=== PATIENT | female | born 1960 | race Caucasian/White ===

== ENCOUNTER 2017-12-27 11:03 | Emergency (ER) | payer MEDICARE, OTHER ==
[2017-12-27 12:01] LABS: Basophils % (A) 0 %; Eosinophils # (A) 0.2 k/uL (0-0.7); Eosinophils % (A) 6 %; HCT 41.6 % (34.0-46.0); HGB 13.5 gm/dL (11.4-16.0); Lymphocytes # (A) 0.7 k/uL (1.0-4.8); Lymphocytes % (A) 18 %; MCH 30.5 pg (25.0-35.0); MCHC 32.4 g/dL (31.0-37.0); MCV 94.2 fL (80.0-100.0); Mean Platelet Volume 6.5; Monocytes # (A) 0.3 k/uL (0-1.0); Monocytes % (A) 7 %; Neutrophils # (A) 2.6 k/uL (1.3-7.7); Neutrophils % (A) 67 %; Platelet Count 177 k/uL (150-450); RBC 4.42 m/uL (3.80-5.40); RDW 15.6 % (11.5-15.5); WBC 3.9 k/uL (3.8-10.6)
[2017-12-27 12:07] VITALS: BP 131/79; PULSE 78; RESP 20; TEMP 97.6
[2017-12-27 12:15] LABS: Magnesium 1.6 mg/dL (1.6-2.3)
[2017-12-27 12:16] LABS: Albumin 2.7 g/dL (3.5-5.0); Calcium 8.1 mg/dL (8.4-10.2); Potassium 4.6 mmol/L (3.5-5.1); Total Bilirubin 1.4 mg/dL (0.2-1.3); Total Protein 6.4 g/dL (6.3-8.2)
[2017-12-27] MEDS ORDERED: MORPHINE SULFATE 4 MG/ML SYRINGE IVP STA (12:28)
--- NOTE | 2017-12-27 13:22 | CT ---
EXAMINATION TYPE: CT abdomen pelvis w con DATE OF EXAM: 12/27/2017 COMPARISON: None HISTORY: RLQ pain post GB removal last week CT DLP: 2.4 mGycm Automated exposure control for dose reduction was used. TECHNIQUE: Helical acquisition of images from the lung bases through the pelvis have been completed. CONTRAST: Performed without Oral Contrast and with IV Contrast, patient injected with 100 mL of Isovue 300. FINDINGS: There are anasarca changes, abnormal skin thickening present over the abdomen, correlate fo r edema versus cellulitis. Small focus of fluid attenuation along anterior abdominal wall likely rela sheryl to the laparoscopic cholecystectomy local seroma or ecchymosis, hematoma, axial image 36. LUNG BASES: There is evidence of granulomatous disease, there is a calcified granuloma right middle l obe, calcified hilar nodes are present AORTA: No significant abnormality is appreciated. LIVER/GB: Patient is post cholecystectomy. Liver is enlarged. There is some minimal fluid around the liver. Suspect some portal nodes are present. PANCREAS: No significant abnormality is seen. SPLEEN: Spleen is enlarged. ADRENALS: No significant abnormality is seen. KIDNEYS: There is some mild delay of contrast excretion.. REPRODUCTIVE ORGANS: No significant abnormality is seen BOWEL: No evident bowel obstruction. The appendix is normal. FREE AIR: No Free Air visible. ASCITES: Small amount of free fluid present along the paracolic gutters. Minimal fluid in the pelvis . PELVIC ADENOPATHY: None visualized. RETROPERITONEAL ADENOPATHY: No Retroperitoneal Adenopathy visible. URINARY BLADDER: Urine appears somewhat dense. OSSEOUS STRUCTURES: Postop changes are present status post lumbosacral fusion. IMPRESSION: HEPATOSPLENOMEGALY. CORRELATE FOR POSSIBLE RENAL INSUFFICIENCY WITH QUESTIONABLE DENSE URINE, POSTOP CHANGES WITH MINIMAL ASCITES. CORRELATE FOR POSSIBLE CELLULITIS VERSUS EDEMA DESCRIBED. Old granul omatous disease.
[2017-12-27 13:58] LABS: Appearance,Urine Clear (Clear); Bilirubin,Urine Negative (Negative); Blood,Urine Negative (Negative); Color,Urine Yellow; Glucose,Urine (UA) Negative (Negative); Ketones,Urine Negative (Negative); Leukocyte Esterase,Urine Negative (Negative); Nitrite,Urine Negative (Negative); PH, Urine 6.5 (5.0-8.0); Protein,Urine Negative (Negative); Specific Gravity,Urine 1.014 (1.001-1.035)
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
[2017-12-27] MEDS ORDERED: cefTRIAXone IN SWFI 2,000 MG/20 ML SYRINGE IVP STA (14:22)
[2017-12-27] MEDS ORDERED: HYDROcodone/APAP 5-325MG 1 EACH TAB PO STA (14:25)
[2017-12-27] MEDS ORDERED: ACET/COD 300 MG/30 MG STARTER PACK 6 TAB BTL PO STA (14:25)
== END 2017-12-27 15:37 | disposition home or self-care (01) ==
LOC: EC 11:03
DX: L03.311 Cellulitis of abdominal wall (principal); F17.200 Nicotine dependence, unspecified, uncomplicated; Z86.718 Personal history of other venous thrombosis and embolism; Z90.49 Acquired absence of other specified parts of digestive tract; Z98.890 Other specified postprocedural states; Z79.01 Long term (current) use of anticoagulants; Z79.899 Other long term (current) drug therapy; Z88.5 Allergy status to narcotic agent
CPT/HCPCS: 36415; 80053; 82150; 83690; 83735; 84100; 85025; 81003; 74177; 99285; 96374; 96375; J2270; J0696; Q9967